=== PATIENT | female | born 1970 | race Caucasian/White ===

== ENCOUNTER 2024-05-20 09:20 | Day surgery (SDC) | payer MEDICARE ==
[2024-05-20] MEDS ORDERED: LIDOCAINE HCL 2% 100 MG/5 ML IJ ONE (09:21)
[2024-05-20] MEDS ORDERED: Lactated Ringers 500 ML IV ONE (09:32)
[2024-05-20] MEDS ORDERED: propofoL IV ONE ×2 (10:40→10:51)
--- NOTE | 2024-05-20 11:59 | XRAY ---
Indication: Left C2-C4 MBB. Intraoperative fluoroscopy provided for 26 second. 2 digital spot image submitted for interpretation demonstrates posterior needle tips project over expected left C2-C4 nerve roots. Correlate with intraoperative findings/report.
--- NOTE | 2024-05-20 14:44 | XRAY ---
26 seconds of fluoroscopy was used in surgery for a left C2-C4 MBB.
== END 2024-05-20 11:24 | disposition home or self-care (01) ==
LOC: SDC-PAIN 09:20
PROVIDERS: ATTEND Psychiatry & Neurology Pain Medicine
DX: M47.812 Spondylosis without myelopathy or radiculopathy, cervical region (principal); E11.9 Type 2 diabetes mellitus without complications
CPT/HCPCS: 64490; 64491; 72040; 77002; 82947; J2704

== ENCOUNTER 2024-10-08 07:23 | Day surgery (SDC) | payer MEDICARE ==
[2024-10-08] MEDS ORDERED: LIDOCAINE HCL 1% 50 MG/5 ML VL IJ ONE (07:24)
[2024-10-08] MEDS ORDERED: BUPIVACAINE 0.5% VIAL IJ ONE (07:24)
[2024-10-08] MEDS ORDERED: propofoL IV ONE (08:58)
[2024-10-08] MEDS ORDERED: Lactated Ringers 1,000 ML IV ONE (12:16)
--- NOTE | 2024-10-08 15:05 | XRAY ---
18 seconds of fluoroscopy was used in surgery for a right C2-C4 RFA.
--- NOTE | 2024-10-08 15:05 | XRAY ---
Indication: Right C2-C4 RFA. Intraoperative fluoroscopy provided for 18 seconds. 4 digital spot images submitted for interpretation demonstrates posterior needle tips projecting over expected right C2-C4 nerve roots. Correlate with intraoperative findings/report.
== END 2024-10-08 09:34 | disposition home or self-care (01) ==
LOC: SDC-PAIN 07:23
PROVIDERS: ATTEND Psychiatry & Neurology Pain Medicine
DX: M47.812 Spondylosis without myelopathy or radiculopathy, cervical region (principal); E11.9 Type 2 diabetes mellitus without complications

== ENCOUNTER 2024-11-18 07:21 | Day surgery (SDC) | payer MEDICARE ==
[2024-11-18] MEDS ORDERED: LIDOCAINE HCL 1% 50 MG/5 ML VL IJ ONE (07:22)
[2024-11-18] MEDS ORDERED: BUPIVACAINE 0.5% VIAL IJ ONE (07:22)
[2024-11-18] MEDS ORDERED: propofoL IV ONE (08:42)
[2024-11-18] MEDS ORDERED: Xylocaine-Mpf 2% 5 Ml Vial ONE (08:43)
[2024-11-18] MEDS ORDERED: Lactated Ringers 1,000 ML IV ONE (10:39)
--- NOTE | 2024-11-18 11:45 | XRAY ---
Indication: Left C2-C4 RFA. Intraoperative fluoroscopy provided for 12 seconds. 3 digital spot image submitted for interpretation demonstrates posterior needle tips projecting over expected left C2-C4 nerve roots. Correlate with intraoperative findings/report.
--- NOTE | 2024-11-18 12:15 | XRAY ---
12 seconds of fluoroscopy was used in surgery for a left C2-C4 RFA.
== END 2024-11-18 09:15 | disposition home or self-care (01) ==
LOC: SDC-PAIN 07:21
PROVIDERS: ATTEND Psychiatry & Neurology Pain Medicine
DX: M47.812 Spondylosis without myelopathy or radiculopathy, cervical region (principal); E11.9 Type 2 diabetes mellitus without complications

== ENCOUNTER 2025-01-20 08:19 | Day surgery (SDC) | payer MEDICARE ==
[2025-01-20] MEDS ORDERED: BUPIVACAINE 0.5% VIAL IJ ONE (08:20)
[2025-01-20] MEDS ORDERED: methylPREDNISolone acetate IM ONE (08:20)
--- NOTE | 2025-01-20 12:14 | XRAY ---
7 seconds of fluoroscopy was used in surgery for a left intra-articular hip injection.
--- NOTE | 2025-01-20 12:18 | XRAY ---
Indication: Left hip injection. Intraoperative fluoroscopy provided for 7 seconds. Single digital spot image submitted for interpretation demonstrates needle tip projecting lateral to left femur neck. Small amount of contrast injected for needle tip placement. Correlate with intraoperative findings/report.
== END 2025-01-20 10:37 | disposition home or self-care (01) ==
LOC: SDC-PAIN 08:19
PROVIDERS: ATTEND Psychiatry & Neurology Pain Medicine
DX: M16.12 Unilateral primary osteoarthritis, left hip (principal); E11.9 Type 2 diabetes mellitus without complications